=== PATIENT | female | born 1995 | race African-American/Black ===

== ENCOUNTER 2017-05-21 12:30 | Emergency (ER) | payer OTHER ==
[~2017-05-21] VITALS: Ht 160 cm; Wt 51.8 kg
[~2017-05-21 12:30] MED LIST: AMOXICILLIN500 MG PO; CHROMAGEN,1 CAPSULE PO; FLEXERIL10 MG PO; IBUPROFEN800 MG PO; KEFLEX500 MG PO; MOTRIN400 MG PO; NAPROSYN500 MG PO; PRENATAL TABLE1 EAC3 PO; TRI-ESTARYLLA1 EACH PO
[2017-05-21] MEDS ORDERED: FLEXERIL10 MG PO (15:30)
[2017-05-21] MEDS ORDERED: NAPROSYN500 MG PO (15:30)
[2017-05-21 15:47] VITALS: BP 116/69
== END 2017-05-21 15:51 | disposition home or self-care (01) ==
LOC: EME 12:30
DX: S39.012A Strain of muscle, fascia and tendon of lower back, initial encounter (principal); S00.211A Abrasion of right eyelid and periocular area, initial encounter; V49.9XXA Car occupant (driver) (passenger) injured in unspecified traffic accident, initial encounter; Y92.410 Unspecified street and highway as the place of occurrence of the external cause
CPT/HCPCS: 99281; 99284; J1885